=== PATIENT | male | born 1950 | race Caucasian/White ===

== ENCOUNTER 2021-07-09 12:04 | Inpatient (IN) | payer MEDICARE, OTHER ==
[~2021-07-09] VITALS: Ht 185.4 cm; Wt 81.2 kg
--- NOTE | 2021-07-09 12:14 | NUR ---
DR VILLAFANA AT BEDSIDE FOR EVAL.
--- NOTE | 2021-07-09 12:23 | NUR ---
RADIOLOGY AT BEDSIDE FOR R FOOT XRAY
[2021-07-09] MEDS ORDERED: VANCOMYCIN HCL 1.25 GM in IV D5W 260 ML IV ONE (12:30)
--- NOTE | 2021-07-09 12:38 | NUR ---
IV LINE STARTED BLOOD DRAWN AND SENT TO LAB.
[2021-07-09 13:09] LABS: BASOPHILS % (AUTO) 0.3 % (0.0-2.0); EOSINOPHILS % (AUTO) 0.5 % (0.0-6.0); HEMATOCRIT 36 % (39-51); HEMOGLOBIN 12.1 g/dL (13.5-17.5); LYMPHOCYTES # (AUTO) 0.7 K/uL (0.8-4.8); LYMPHOCYTES % (AUTO) 7.6 % (20.0-44.0); MEAN CORPUSCULAR HGB CONC 33 g/dl (31.0-36.0); MEAN CORPUSCULAR VOLUME 98 fL (80-96); MONOCYTES # (AUTO) 0.6 K/uL (0.1-1.30); MONOCYTES % (AUTO) 6.5 % (2.0-12.0); NEUTROPHILS # (AUTO) 7.8 K/uL (1.8-8.9); NEUTROPHILS % (AUTO) 85.1 % (43.0-81.0); PLATELET COUNT (AUTO) 253 K/uL (150-450); RED BLOOD CELL COUNT(AUTO) 3.69 MIL/uL (4.5-6.0); WHITE BLOOD COUNT (AUTO) 9.2 K/uL (4.3-11.0)
[2021-07-09 13:16] LABS: CALCIUM, SERUM 8.6 mg/dL (8.5-10.1); CREATININE 1.5 mg/dL (0.6-1.3)
[2021-07-09] MEDS ORDERED: Z GUARD REMEDY 4 OZ OINT TP PRN (13:30)
[2021-07-09] MEDS ORDERED: MAGNESIUM HYDROXIDE 30 ML UDC PO PRN (13:30)
[2021-07-09] MEDS ORDERED: ALBUTEROL FS 2.5 MG/3 ML VIAL.NEB NEB PRN (13:30)
[2021-07-09] MEDS ORDERED: DEXTROSE 50%-WATER 50 ML DISP.SYRIN IV PRN (13:30)
[2021-07-09] MEDS ORDERED: ONDANSETRON HCL/PF 4 MG/2 ML VIAL IVP PRN (13:30)
[2021-07-09] MEDS ORDERED: MAG HYDROX/AL HYDROX/SIMETH 30 ML UDC PO PRN (13:30)
[2021-07-09] MEDS ORDERED: TRAZODONE 50 MG TABLET PO PRN (13:30)
[2021-07-09] MEDS ORDERED: ACETAMINOPHEN 325 MG TABLET PO PRN (13:30)
[2021-07-09] MEDS ORDERED: ZOLPIDEM TARTRATE 5 MG TABLET PO PRN (13:30)
[2021-07-09 13:33] LABS: C-REACTIVE PROTEIN 6.8 mg/dL (0.0-0.9)
--- NOTE | 2021-07-09 13:58 | NUR ---
LIPID PANEL AND HGBA1C FOR 07/10/21 AM PER MARCOS TOLEDO.
[2021-07-09] MEDS ORDERED: IV NS 0.9% 1,000 ML IV PRN (14:00)
--- NOTE | 2021-07-09 14:01 | NUR ---
RADIOLOGY AT BEDSIDE FOR CHEST XRAY.
[2021-07-09] MEDS ORDERED: PANTOPRAZOLE 40 MG TABLET.DR PO ONE (14:08)
[2021-07-09] MEDS: PANTOPRAZOLE 40 MG TABLET.DR PO SCH (14:11)
[2021-07-09] MEDS ORDERED: RIVA10TA PO (14:59)
[2021-07-09] MEDS ORDERED: FLUT1BLS IH (14:59)
[2021-07-09] MEDS ORDERED: BUME2TAB7 PO (14:59)
[2021-07-09] MEDS ORDERED: INSU100V9 IJ (14:59)
[2021-07-09] MEDS ORDERED: FERR325T23 PO (14:59)
[2021-07-09] MEDS ORDERED: POLY17PO4 PO (14:59)
[2021-07-09] MEDS ORDERED: TRAZ-257 PO (14:59)
[2021-07-09] MEDS ORDERED: CARI350T27 PO (14:59)
[2021-07-09] MEDS ORDERED: ALBU18HF2 IH (14:59)
[2021-07-09] MEDS ORDERED: AMIN887L PO (14:59)
[2021-07-09] MEDS ORDERED: CARV3.12 PO (14:59)
[2021-07-09] MEDS ORDERED: ACET325T53 PO (14:59)
[2021-07-09] MEDS ORDERED: ASCO500C17 PO (14:59)
[2021-07-09] MEDS ORDERED: AMIO200T5 PO (14:59)
[2021-07-09] MEDS ORDERED: DOCU-141 PO (14:59)
[2021-07-09] MEDS ORDERED: REPA0.5T6 PO (14:59)
[2021-07-09] MEDS ORDERED: ATOR10TA PO (14:59)
[2021-07-09] MEDS ORDERED: CLOP75TA15 PO (14:59)
[2021-07-09] MEDS: PIPERACILLIN /TAZOBACTAM 3.375 G in IV D5W 50 ML IV SCH ×2 (15:25→23:30)
--- NOTE | 2021-07-09 15:51 | NUR ---
[facility] AWAITING FOR THE PHARM TO DELIVER ZOSYN SCHEDULED AT [id number]. MULTIPLE CALLS WERE MADE. WILL CONTINUE TO FOLLOW UP UNTIL DELIVERED.
[2021-07-09] MEDS: BLOOD SUGAR DIAGNOSTIC 1 EACH STRIP IN SCH (17:43)
[2021-07-09] MEDS ORDERED: CARVEDILOL 3.125 MG TABLET ONE (17:52)
[2021-07-09] MEDS: CARVEDILOL 3.125 MG TABLET PO SCH (17:56)
[2021-07-09] MEDS: REPAGLINIDE 0.5 MG TABLET PO SCH (17:56)
[2021-07-09] MEDS: RIVAROXABAN 10 MG TABLET PO SCH (18:00)
[2021-07-09] MEDS: INSULIN REGULAR, HUMAN 100 UNIT/ML 3 ML VIAL SQ PRN (18:01)
--- NOTE | 2021-07-09 18:50 | NUR ---
bed assigned,MS [id number] for next shift
--- NOTE | 2021-07-09 20:11 | NUR ---
REPORT GIVEN TO LOBO ALLEN
--- NOTE | 2021-07-09 20:43 | NUR ---
PT TRANSFERRED IN STABLE CONDITION
[2021-07-09 21:00] VITALS: BP 128/77
--- NOTE | 2021-07-09 21:00 | NUR ---
MS RN NOTE PATIENT ARRIVED ON UNIT IN STABLE CONDITION, PATIENT A/O X 2, REORIENTED PATIENT TO PLACE, PT BELIEVED HE [facility]. PATIENT STABLE ON RA, NO S/S OF DISTRESS OR SOB NOTED, BREATHING EVEN AND UNLABORED. PT HAS LEFT ABOVE THE KNEE AMPUTATION. IV ACCESS ON RIGHT AC #20G INTACT AND FLUSHING WELL. PATIENT COMPLAINING OF 8/10 PAIN ON RIGHT FOOT AND BUTTOCKS. NOTED BELONGINGS AND PLACED IN CHART. ID BAND PLACED ON PATIENT. DEMONSTRATED HOW TO USE CALL LIGHT AND REMOTE CONTROL. SAFETY MEASURES IN PLACE: CALL LIGHT WITHIN REACH, SIDE RAILS UP X 3, BED LOCKED IN LOW POSITION, BED ALARM ON. WILL CONTINUE TO MONITOR PATIENT
[2021-07-09] MEDS: HYDROMORPHONE INJ 2 MG/ML DISP.SYRIN IV PRN (21:22)
[2021-07-09] MEDS ORDERED: PIPERACILLIN /TAZOBACTAM 3.375 G VIAL IV ONE (22:49)
[2021-07-09] MEDS: MORPHINE SULFATE INJ 2 MG/ML DISP.SYRIN IV PRN (23:29)
[2021-07-10] MEDS: BLOOD SUGAR DIAGNOSTIC 1 EACH STRIP IN SCH ×5 (00:03→21:07)
[2021-07-10] MEDS: INSULIN REGULAR, HUMAN 100 UNIT/ML 3 ML VIAL SQ PRN ×5 (00:09→21:08)
[2021-07-10] MEDS ORDERED: PIPERACILLIN /TAZOBACTAM 3.375 G VIAL IV ONE (06:30)
[2021-07-10] MEDS: PIPERACILLIN /TAZOBACTAM 3.375 G in IV D5W 50 ML IV SCH ×3 (06:35→20:48)
[2021-07-10 06:36] LABS: BASOPHILS # (AUTO) 0.1 K/uL (0.0-0.2); BASOPHILS % (AUTO) 0.6 % (0.0-2.0); EOSINOPHILS % (AUTO) 0.8 % (0.0-6.0); HEMATOCRIT 34 % (39-51); HEMOGLOBIN 11.6 g/dL (13.5-17.5); LYMPHOCYTES % (AUTO) 10.7 % (20.0-44.0); MEAN CORPUSCULAR HGB CONC 34 g/dl (31.0-36.0); MEAN CORPUSCULAR VOLUME 96 fL (80-96); MONOCYTES # (AUTO) 0.8 K/uL (0.1-1.30); MONOCYTES % (AUTO) 8.4 % (2.0-12.0); NEUTROPHILS # (AUTO) 7.4 K/uL (1.8-8.9); NEUTROPHILS % (AUTO) 79.5 % (43.0-81.0); PLATELET COUNT (AUTO) 256 K/uL (150-450); RED BLOOD CELL COUNT(AUTO) 3.53 MIL/uL (4.5-6.0); WHITE BLOOD COUNT (AUTO) 9.3 K/uL (4.3-11.0)
[2021-07-10 07:06] LABS: CALCIUM, SERUM 8.5 mg/dL (8.5-10.1); CREATININE 1.4 mg/dL (0.6-1.3); MAGNESIUM 2.4 mg/dL (1.8-2.4); PHOSPHORUS 3.7 mg/dL (2.5-4.9); POTASSIUM 4.4 mmol/L (3.5-5.1)
[2021-07-10 07:14] LABS: THYROID STIMULATING HORMONE 1.493 uIU/mL (0.358-3.74)
--- NOTE | 2021-07-10 07:35 | NUR ---
MS RN OPENING NOTES RECEIVED PATIENT ON BED, AWAKE, VERBALLY RESPONSIVE, NO SIGNS OF ACUTE DISTRESS NOTED. ON ROOM AIR, TOLERATING WELL, NO SOB NOTED. IV ACCESS ON RAC #20G INTACT AND PATENT WITH NS @75 ML/HR RUNNING. NO C/O PAIN OR DISCOMFORT AT THIS TIME. SAFETY MEASURES MAINTAINED. BED LOCKED AND IN LOWEST POSITION, SR UP X2, CALL LIGHT PLACED WITHIN EASY REACH. WILL CONTINUE TO MONITOR.
--- NOTE | 2021-07-10 07:43 | NUR ---
WOUND CARE CONSULT: PT PRESENTS WITH DRESSING TO RT LOWER EXTREMITY WHICH IS DRY AND INTACT. PT FOLLOWED BY DR ZHANG FOR LOWER EXTREMITY. LEFT ABOVE KNEE AMPUTATION NOTED. SACRAL SCARRING AND MIDBACK INCISION WITH OPEN AREA NOTED TO BE PRESENT ON ADMISSION. DR KRUGER CALLED FOR SURGICAL CONSULT. RECOMMENDATIONS MADE FOR SKIN PROTECTION. DISCUSSED WITH NURSING STAFF. IN AGREEMENT WITH PLAN OF CARE. Addendum: 07/10/21 at 0745 by FANG KEARNEY WNDNU Amended: Links added.
--- NOTE | 2021-07-10 07:54 | NUR ---
MS RN NOTES PATIENT ALERT/ORIENTED X 2-3, PT VERY FORGETFUL, PT ABLE TO MAKE NEEDS KNOWN. PT STABLE ON RA, NO S/S OF DISTRESS OR SOB NOTED, BREATHING EVEN AND UNLABORED. MEDICATIONS GIVEN ORDERED. PAIN CONTROL PROVIDED FOR RIGHT FOOT AND BUTTOCKS PAIN. PHOTOS OF RIGHT FOOT, SACRUM AND RIGHT KNEE TAKEN AND PLACED IN CHART. SAFETY MEASURES IN PLACE: CALL LIGHT WITHIN REACH, SIDE RAILS UP X 2, BED LOCKED IN LOW POSITION, BED ALARM ON. ENDORSED TO DAY SHIFT NURSE FOR CONTINUITY OF CARE
[2021-07-10 08:00] VITALS: BP 124/72
[2021-07-10] MEDS: PANTOPRAZOLE 40 MG TABLET.DR PO SCH (08:29)
[2021-07-10] MEDS: ASCORBIC ACID 500 MG TABLET PO SCH (08:51)
[2021-07-10] MEDS: AMIODARONE HCL 200 MG TABLET PO SCH (08:51)
[2021-07-10] MEDS: CARVEDILOL 3.125 MG TABLET PO SCH ×2 (08:51→16:39)
[2021-07-10] MEDS: CLOPIDOGREL BISULFATE 75 MG TABLET PO SCH (08:51)
[2021-07-10 08:55] LABS: IRON, SERUM 29 ug/dl (50-175); TOTAL IRON BINDING CAPACITY 184 ug/dl (250-450)
[2021-07-10] MEDS ORDERED: FLUTICASONE/VILANTEROL 1 EACH BLST.W.DEV IH SCH (09:00)
[2021-07-10] MEDS ORDERED: BUMETANIDE (1 MG) 1 MG TABLET PO SCH (09:00)
[2021-07-10] MEDS: REPAGLINIDE 0.5 MG TABLET PO SCH ×3 (09:36→16:39)
[2021-07-10] MEDS: VANCOMYCIN 1.25 GM in IV D5W 250 ML IV SCH (12:04)
[2021-07-10 13:04] LABS: FERRITIN 318 ng/mL (8-388)
[2021-07-10] MEDS: GLUCERNA SHAKE 237 ML CAN PO SCH ×2 (14:14→17:18)
[2021-07-10 16:00] VITALS: BP 127/74
[2021-07-10] MEDS: RIVAROXABAN 10 MG TABLET PO SCH (16:40)
[2021-07-10] MEDS: HYDROMORPHONE INJ 2 MG/ML DISP.SYRIN IV PRN (18:27)
--- NOTE | 2021-07-10 18:57 | NUR ---
MS RN CLOSING NOTES PATIENT ON BED, AWAKE, VERBALLY RESPONSIVE, NO SIGNS OF ACUTE DISTRESS NOTED. REMAINS ON ROOM AIR, TOLERATING WELL, NO SOB NOTED. IV ACCESS ON RAC #20G INTACT, SALINE LOCKED. NO C/O PAIN OR DISCOMFORT AT THIS TIME. ALL DUE MEDS GIVEN, TOLERATED WELL. SAFETY MEASURES MAINTAINED. BED LOCKED AND IN LOWEST POSITION, SR UP X2, CALL LIGHT PLACED WITHIN EASY REACH. WILL ENDORSE TO NEXT SHIFT.
[2021-07-10] MEDS: ALBUTEROL FS 2.5 MG/3 ML VIAL.NEB NEB SCH (19:50)
[2021-07-10] MEDS: BUDESONIDE RESPULE INH 0.5 MG/2 ML AMPUL.NEB NEB SCH (19:50)
[2021-07-10 20:00] VITALS: BP 124/75
[2021-07-10] MEDS: MORPHINE SULFATE INJ 2 MG/ML DISP.SYRIN IV PRN (21:07)
[2021-07-10] MEDS ORDERED: INSULIN GLARGINE, 100 UNIT/ML CARTRIDGE SQ SCH (22:00)
[2021-07-11] MEDS: HYDROMORPHONE INJ 2 MG/ML DISP.SYRIN IV PRN ×2 (00:26→12:55)
[2021-07-11] MEDS: ALBUTEROL FS 2.5 MG/3 ML VIAL.NEB NEB SCH ×4 (01:30→20:54)
[2021-07-11] MEDS: MORPHINE SULFATE INJ 2 MG/ML DISP.SYRIN IV PRN ×2 (03:00→17:56)
[2021-07-11] MEDS: PIPERACILLIN /TAZOBACTAM 3.375 G in IV D5W 50 ML IV SCH ×2 (04:54→15:12)
--- NOTE | 2021-07-11 06:41 | NUR ---
MS RN NOTES AWAKE & RESPONSIVE. NOT IN ANY DISTRESS. NO SOB NOTED. DENIES ANY PAIN OR DISCOMFORT AT THIS TIME. WITH IV-HL PATENT & INTACT. AM CARE DONE. MONITORED ACCORDINGLY. CALL LIGHT WITHIN REACH. BED IN LOWEST POSITION. SR UP X 3 WITH BED ALARM ON FOR SAFETY. WILL ENDORSE TO NEXT SHIFT.
[2021-07-11] MEDS: BLOOD SUGAR DIAGNOSTIC 1 EACH STRIP IN SCH ×4 (06:50→22:00)
[2021-07-11] MEDS: INSULIN REGULAR, HUMAN 100 UNIT/ML 3 ML VIAL SQ PRN ×4 (06:51→22:10)
[2021-07-11 07:17] LABS: BASOPHILS % (AUTO) 0.6 % (0.0-2.0); EOSINOPHILS % (AUTO) 1.4 % (0.0-6.0); HEMATOCRIT 35 % (39-51); HEMOGLOBIN 11.6 g/dL (13.5-17.5); LYMPHOCYTES # (AUTO) 1.2 K/uL (0.8-4.8); LYMPHOCYTES % (AUTO) 16.4 % (20.0-44.0); MEAN CORPUSCULAR HGB CONC 33 g/dl (31.0-36.0); MEAN CORPUSCULAR VOLUME 97 fL (80-96); MONOCYTES # (AUTO) 0.6 K/uL (0.1-1.30); MONOCYTES % (AUTO) 8.4 % (2.0-12.0); NEUTROPHILS # (AUTO) 5.4 K/uL (1.8-8.9); NEUTROPHILS % (AUTO) 73.2 % (43.0-81.0); PLATELET COUNT (AUTO) 261 K/uL (150-450); RED BLOOD CELL COUNT(AUTO) 3.57 MIL/uL (4.5-6.0); WHITE BLOOD COUNT (AUTO) 7.4 K/uL (4.3-11.0)
[2021-07-11] MEDS: BUDESONIDE RESPULE INH 0.5 MG/2 ML AMPUL.NEB NEB SCH ×2 (07:30→20:53)
--- NOTE | 2021-07-11 07:58 | NUR ---
MS RN OPENING NOTES RECEIVED PT IN BED, AWAKE, VERBALLY RESPONSIVE, NO SIGNS OF ACUTE DISTRESS NOTED. ON ROOM AIR, TOLERATING WELL, NO SOB NOTED. IV ACCESS ON R AC #20G INTACT AND PATENT WITH NS @75 ML/HR RUNNING. NO C/O PAIN OR DISCOMFORT AT THIS TIME. SAFETY MEASURES MAINTAINED. BED IS LOCKED AND IN LOWEST POSITION, SR UP X2, CALL LIGHT AND BED SIDE TABLE WITHIN EASY REACH. WILL CONTINUE TO MONITOR THROUGHOUT THE SHIFT.
[2021-07-11 08:00] VITALS: BP 122/79
[2021-07-11 08:08] LABS: CALCIUM, SERUM 8.7 mg/dL (8.5-10.1); CREATININE 1.5 mg/dL (0.6-1.3); POTASSIUM 3.9 mmol/L (3.5-5.1)
[2021-07-11] MEDS: REPAGLINIDE 0.5 MG TABLET PO SCH ×3 (08:42→16:37)
[2021-07-11] MEDS: PANTOPRAZOLE 40 MG TABLET.DR PO SCH (08:42)
[2021-07-11] MEDS: ASCORBIC ACID 500 MG TABLET PO SCH (08:43)
[2021-07-11] MEDS: CLOPIDOGREL BISULFATE 75 MG TABLET PO SCH (08:43)
[2021-07-11] MEDS: GLUCERNA SHAKE 237 ML CAN PO SCH ×2 (08:44→17:23)
[2021-07-11] MEDS: CARVEDILOL 3.125 MG TABLET PO SCH ×2 (08:45→16:37)
[2021-07-11] MEDS: BUMETANIDE (1 MG) 1 MG TABLET PO SCH (08:46)
[2021-07-11] MEDS: AMIODARONE HCL 200 MG TABLET PO SCH (08:46)
[2021-07-11] MEDS: VANCOMYCIN 1.25 GM in IV D5W 250 ML IV SCH (12:46)
[2021-07-11 16:00] VITALS: BP_SYST 124; BP_SYST 127; BP_DIAS 63; BP_DIAS 84
[2021-07-11] MEDS: RIVAROXABAN 10 MG TABLET PO SCH (16:39)
[2021-07-11] MEDS: GABAPENTIN 300 MG CAPSULE PO SCH (18:51)
--- NOTE | 2021-07-11 19:35 | NUR ---
MS RN CLOSING NOTES Pt IS RESTING IN BED, AWAKE, VERBALLY RESPONSIVE, NO SIGNS OF ACUTE DISTRESS NOTED. REMAINS ON ROOM AIR AND IS TOLERATING WELL, NO SOB NOTED AT THIS TIME. IV ACCESS ON R AC #20g IS PATENT AND INTACT, SALINE LOCKED. NO C/O PAIN OR DISCOMFORT AT THIS TIME. SAFETY MEASURES MAINTAINED. BED LOCKED AND IN LOWEST POSITION, SIDERAILS UP X2, CALL LIGHT PLACED WITHIN EASY REACH. WILL ENDORSE TO ONCOMING SHIFT.
[2021-07-11 20:00] VITALS: BP 115/66
[2021-07-11] MEDS ORDERED: INSULIN GLARGINE, 100 UNIT/ML CARTRIDGE SQ SCH (22:00)
[2021-07-11] MEDS: MUPIROCIN OINT 2% 22 GM TUBE NS SCH (22:06)
--- NOTE | 2021-07-11 23:05 | NUR ---
blood sugar checked earlier was 114.
[2021-07-12] VITALS: BP 113/72
[2021-07-12] MEDS: ALBUTEROL FS 2.5 MG/3 ML VIAL.NEB NEB SCH ×4 (01:30→20:19)
[2021-07-12 04:00] VITALS: BP 111/65
[2021-07-12 05:00] LABS: BASOPHILS # (AUTO) 0.1 K/uL (0.0-0.2); BASOPHILS % (AUTO) 0.7 % (0.0-2.0); EOSINOPHILS % (AUTO) 2.6 % (0.0-6.0); HEMATOCRIT 33 % (39-51); HEMOGLOBIN 10.9 g/dL (13.5-17.5); LYMPHOCYTES # (AUTO) 1.4 K/uL (0.8-4.8); LYMPHOCYTES % (AUTO) 18.6 % (20.0-44.0); MEAN CORPUSCULAR HGB CONC 34 g/dl (31.0-36.0); MEAN CORPUSCULAR VOLUME 97 fL (80-96); MONOCYTES # (AUTO) 0.6 K/uL (0.1-1.30); MONOCYTES % (AUTO) 8.6 % (2.0-12.0); NEUTROPHILS % (AUTO) 69.5 % (43.0-81.0); PLATELET COUNT (AUTO) 266 K/uL (150-450); RED BLOOD CELL COUNT(AUTO) 3.38 MIL/uL (4.5-6.0); WHITE BLOOD COUNT (AUTO) 7.2 K/uL (4.3-11.0)
[2021-07-12 05:23] LABS: CALCIUM, SERUM 8.4 mg/dL (8.5-10.1); CREATININE 1.6 mg/dL (0.6-1.3); POTASSIUM 4.5 mmol/L (3.5-5.1)
[2021-07-12] MEDS: BLOOD SUGAR DIAGNOSTIC 1 EACH STRIP IN SCH ×4 (06:35→21:25)
[2021-07-12] MEDS: INSULIN REGULAR, HUMAN 100 UNIT/ML 3 ML VIAL SQ PRN ×4 (06:37→21:20)
[2021-07-12] MEDS: BUDESONIDE RESPULE INH 0.5 MG/2 ML AMPUL.NEB NEB SCH ×2 (07:30→20:18)
--- NOTE | 2021-07-12 07:45 | NUR ---
RN OPENING NOTES PATIENT IS AWAKE IN BED RESTING, A/O X4. NO S/S OF PAIN NOTED AT THIS TIME. ON ROOM AIR, NO DISTRESS OR SHORTNESS OF BREATH NOTED. IV ACCESS R AC #20G, INTACT AND PATENT, FLUSHING WELL. PATIENT HAVE AN EXTERNAL COVERSTITCH MACHINE OPERATOR WITH CURRENT READING OF S.R. WITH OCCASIONAL PVC, HR 74, NO CARDIAC DISTRESS NOTED. FALL AND SAFETY MEASURES IN PLACE, BED ALARM ON, BED IN LOW AND LOCK POSITION, CALL LIGHT AND TABLE WITHIN EASY REACH, SIDE RAIL UP X2. WILL CONTINUE TO MONITOR.
[2021-07-12] MEDS: GLUCERNA SHAKE 237 ML CAN PO SCH ×2 (08:00→17:48)
[2021-07-12 08:45] VITALS: BP 120/64
[2021-07-12] MEDS ORDERED: VALSARTAN 80 MG TABLET PO SCH (09:00)
[2021-07-12] MEDS: AMIODARONE HCL 200 MG TABLET PO SCH (10:16)
[2021-07-12] MEDS: ASCORBIC ACID 500 MG TABLET PO SCH (10:16)
[2021-07-12] MEDS: GABAPENTIN 300 MG CAPSULE PO SCH ×3 (10:17→16:46)
[2021-07-12] MEDS: BUMETANIDE (1 MG) 1 MG TABLET PO SCH (10:17)
[2021-07-12] MEDS: PANTOPRAZOLE 40 MG TABLET.DR PO SCH (10:17)
[2021-07-12] MEDS: CARVEDILOL 3.125 MG TABLET PO SCH ×2 (10:17→16:48)
[2021-07-12] MEDS: MUPIROCIN OINT 2% 22 GM TUBE NS SCH ×2 (10:18→21:26)
[2021-07-12] MEDS: CLOPIDOGREL BISULFATE 75 MG TABLET PO SCH (10:18)
[2021-07-12] MEDS: REPAGLINIDE 0.5 MG TABLET PO SCH ×3 (10:21→16:46)
[2021-07-12] MEDS: VANCOMYCIN 1.25 GM in IV D5W 250 ML IV SCH (12:00)
[2021-07-12 12:07] VITALS: BP 129/73
[2021-07-12] MEDS: MORPHINE SULFATE INJ 2 MG/ML DISP.SYRIN IV PRN ×2 (12:35→18:52)
[2021-07-12 16:21] VITALS: BP_SYST 112; BP_SYST 90; BP_DIAS 52
[2021-07-12] MEDS: RIVAROXABAN 10 MG TABLET PO SCH (16:47)
--- NOTE | 2021-07-12 16:49 | NUR ---
RN NOTE CARVEDILOL WAS NOT GIVEN DUE TO DECREASED BLOOD PRESSURE, BP: 90/52, P: 82
--- NOTE | 2021-07-12 19:25 | NUR ---
MS RN OPENING NOTES: RECEIVED PATIENT IN BED, AWAKE, A/O X4. NO S/S OF DISTRESS NOTED. NO COMPLAIN OF PAIN. CALL LIGHT WITHIN REACH. BED ALARM ON. BED IN LOWEST AND LOCKED POSITION. HAD BM.
--- NOTE | 2021-07-12 19:43 | NUR ---
RN CLOSING NOTES PATIENT IS AWAKE IN BED RESTING, A/O X4. NO S/S OF PAIN NOTED AT THIS TIME. ON ROOM AIR, NO DISTRESS OR SHORTNESS OF BREATH NOTED. IV ACCESS R AC #20G, INTACT AND PATENT, FLUSHING WELL. FALL AND SAFETY MEASURES IN PLACE, BED ALARM ON, BED IN LOW AND LOCK POSITION, CALL LIGHT AND TABLE WITHIN EASY REACH, SIDE RAIL UP X2. WILL ENDORSE TO CHIEF OF ANESTHESIOLOGY.
[2021-07-12 20:00] VITALS: BP 107/60
[2021-07-12] MEDS: INSULIN GLARGINE, 100 UNIT/ML CARTRIDGE SQ SCH (21:25)
[2021-07-13] VITALS: BP 93/54
[2021-07-13] MEDS: ALBUTEROL FS 2.5 MG/3 ML VIAL.NEB NEB SCH ×4 (01:11→20:12)
--- NOTE | 2021-07-13 01:11 | NUR ---
RT NOTE PT REFUSED TX AT THIS TIME. NO RESPIRATORY DISTRESS NOTED. RN NOTIFIED. PT TOLERATING ROOM AIR WELL.
[2021-07-13] MEDS: MORPHINE SULFATE INJ 2 MG/ML DISP.SYRIN IV PRN ×3 (01:38→17:36)
[2021-07-13 04:00] VITALS: BP 116/69
[2021-07-13] MEDS: BLOOD SUGAR DIAGNOSTIC 1 EACH STRIP IN SCH ×4 (06:46→22:42)
[2021-07-13] MEDS: INSULIN REGULAR, HUMAN 100 UNIT/ML 3 ML VIAL SQ PRN ×4 (06:46→22:45)
--- NOTE | 2021-07-13 07:43 | NUR ---
RN OPENING NOTE- PT ASLEEP, EASILY AWAKENED. NO S/S OF PAIN NOTED AT THIS TIME. ON ROOM AIR, NO DISTRESS OR SHORTNESS OF BREATH NOTED. IV ACCESS R AC #20G. TELE MONITOR WITH CURRENT READING OF S.R. WITH OCCASIONAL PVC, HR 78, NO CARDIAC DISTRESS NOTED. FALL AND SAFETY MEASURES IN PLACE, BED ALARM ON, BED IN LOW AND LOCK POSITION, CALL LIGHT AND TABLE WITHIN EASY REACH, SIDE RAIL UP X2. WILL CONTINUE TO MONITOR.
[2021-07-13 07:44] LABS: CREATININE 1.8 mg/dL (0.6-1.3); POTASSIUM 5.2 mmol/L (3.5-5.1)
[2021-07-13] MEDS: BUDESONIDE RESPULE INH 0.5 MG/2 ML AMPUL.NEB NEB SCH ×2 (08:00→20:12)
[2021-07-13] MEDS: GLUCERNA SHAKE 237 ML CAN PO SCH ×2 (08:54→16:44)
[2021-07-13] MEDS: PANTOPRAZOLE 40 MG TABLET.DR PO SCH (08:55)
[2021-07-13] MEDS: AMIODARONE HCL 200 MG TABLET PO SCH (09:00)
[2021-07-13] MEDS: CARVEDILOL 3.125 MG TABLET PO SCH ×2 (09:00→16:41)
[2021-07-13] MEDS: CLOPIDOGREL BISULFATE 75 MG TABLET PO SCH (09:43)
[2021-07-13] MEDS: ASCORBIC ACID 500 MG TABLET PO SCH (09:43)
[2021-07-13] MEDS: GABAPENTIN 300 MG CAPSULE PO SCH ×3 (09:43→16:41)
[2021-07-13] MEDS: BUMETANIDE (1 MG) 1 MG TABLET PO SCH (09:43)
[2021-07-13] MEDS: REPAGLINIDE 0.5 MG TABLET PO SCH ×3 (09:43→16:41)
[2021-07-13] MEDS: MUPIROCIN OINT 2% 22 GM TUBE NS SCH ×2 (10:19→21:32)
--- NOTE | 2021-07-13 11:00 | NUR ---
RN NOTE- PT W LARGE BM AT THIS TIME, BATH GIVEN. TOLERATED WELL. MORPHINE EFFECTIVELY RELIEVING PAIN.
[2021-07-13] MEDS: VANCOMYCIN 1.25 GM in IV D5W 250 ML IV SCH (12:11)
[2021-07-13] MEDS: HYDROMORPHONE INJ 2 MG/ML DISP.SYRIN IV PRN (12:35)
[2021-07-13] MEDS: RIVAROXABAN 10 MG TABLET PO SCH (16:42)
--- NOTE | 2021-07-13 18:07 | NUR ---
ATTEMPTED CALLING RN REGARDING CTA LOWER EXTREMITY, NO ANSWER. LAB VALUES ARE TO LOW TO DO CT ANGIOGRAM (GFR 41, CREATININE 1.8). PLEASE FOLLOW UP WITH ORDERING MD REGARDING CT EXAM. CALL RADIOLOGY EXT [phone] IF ANYTHING CHANGES.
--- NOTE | 2021-07-13 18:43 | NUR ---
RN CLOSING NOTE-PT NO S/S OF PAIN NOTED AT THIS TIME. ON ROOM AIR, NO DISTRESS OR SHORTNESS OF BREATH NOTED. IV ACCESS R AC #20G. TELE MONITOR WITH CURRENT READING OF S.R. HR-80, NO CARDIAC DISTRESS NOTED. FALL AND SAFETY MEASURES IN PLACE, BED ALARM ON, BED IN LOW AND LOCK POSITION, CALL LIGHT AND TABLE WITHIN EASY REACH, SIDE RAIL UP X2. WILL CONTINUE TO MONITOR/ ASSIST
[2021-07-13 20:00] VITALS: BP 96/52
--- NOTE | 2021-07-13 20:00 | NUR ---
RN NOTES RECEIVED PATIENT IN BED, ALERT/ORIENTED X4, ROOM AIR, NO COMPLAIN OF PAIN, RECEIVED MORPHINE AND DILAUDID ALTERNATELY DURING SHIFT. URINAL AT THE BEDSIDE, WILL CONTINUE TO MONITOR
[2021-07-13] MEDS: INSULIN GLARGINE, 100 UNIT/ML CARTRIDGE SQ SCH (22:48)
[2021-07-14] VITALS: BP 97/49
[2021-07-14] MEDS: ALBUTEROL FS 2.5 MG/3 ML VIAL.NEB NEB SCH ×4 (01:30→19:16)
[2021-07-14 04:00] VITALS: BP 102/54
[2021-07-14] MEDS: BLOOD SUGAR DIAGNOSTIC 1 EACH STRIP IN SCH ×4 (06:51→22:01)
[2021-07-14] MEDS: INSULIN REGULAR, HUMAN 100 UNIT/ML 3 ML VIAL SQ PRN ×4 (06:53→22:06)
--- NOTE | 2021-07-14 07:28 | NUR ---
Alert and oriented x4, room air, right foot pain due to diabetic open wound, xarelto for VTE, pain managed by Dilaudid and Morphine with adequate relief, potassium level 07/13/21 5.2, reported to Dr. Lagunas, repeated lab STAT, latest potassium 5.1 NNO. Monitor electrolytes, renal function, stable for angiogram from nephrology stand point, accucheck, sliding scale.
--- NOTE | 2021-07-14 07:33 | NUR ---
RN OPENING NOTE- PT ASLEEP, EASILY AWAKENED. NO S/S OF PAIN NOTED AT THIS TIME. ON ROOM AIR, NO DISTRESS OR SHORTNESS OF BREATH NOTED. IV ACCESS R AC #20G. TELE MONITOR WITH CURRENT READING OF S.R. WITH OCCASIONAL PVC, HR 80, NO CARDIAC DISTRESS NOTED. FALL AND SAFETY MEASURES IN PLACE, BED ALARM ON, BED IN LOW AND LOCK POSITION, CALL LIGHT AND TABLE WITHIN EASY REACH, SIDE RAIL UP X2. WILL CONTINUE TO MONITOR.
[2021-07-14 07:49] LABS: CALCIUM, SERUM 9.1 mg/dL (8.5-10.1); CREATININE 1.7 mg/dL (0.6-1.3); POTASSIUM 4.7 mmol/L (3.5-5.1)
[2021-07-14] MEDS: PANTOPRAZOLE 40 MG TABLET.DR PO SCH (08:02)
[2021-07-14] MEDS: GLUCERNA SHAKE 237 ML CAN PO SCH ×2 (08:02→16:34)
[2021-07-14 08:20] VITALS: BP 108/59
[2021-07-14] MEDS: BUDESONIDE RESPULE INH 0.5 MG/2 ML AMPUL.NEB NEB SCH ×2 (08:43→19:16)
[2021-07-14] MEDS: MUPIROCIN OINT 2% 22 GM TUBE NS SCH ×2 (08:58→21:37)
[2021-07-14] MEDS: AMIODARONE HCL 200 MG TABLET PO SCH (08:59)
[2021-07-14] MEDS: REPAGLINIDE 0.5 MG TABLET PO SCH ×3 (08:59→16:34)
[2021-07-14] MEDS: CARVEDILOL 3.125 MG TABLET PO SCH ×2 (08:59→16:38)
[2021-07-14] MEDS: BUMETANIDE (1 MG) 1 MG TABLET PO SCH (08:59)
[2021-07-14] MEDS: GABAPENTIN 300 MG CAPSULE PO SCH ×3 (08:59→16:34)
[2021-07-14] MEDS: ASCORBIC ACID 500 MG TABLET PO SCH (08:59)
[2021-07-14] MEDS: CLOPIDOGREL BISULFATE 75 MG TABLET PO SCH (08:59)
[2021-07-14] MEDS: MORPHINE SULFATE INJ 2 MG/ML DISP.SYRIN IV PRN ×2 (11:16→17:16)
--- NOTE | 2021-07-14 11:41 | NUR ---
RN NOTE- DRESSING CHANGE LT FOOT. ERYTHEMA, DRY SEROUS DRAINAGE, NO PURULENCE, NO ODOR. CLEANSED W NS, PETROLEUM DRESSING AND 4X4 APPLIED. WRAPPED W KERLIX. PHOTOS TAKEN FOR CHART. TOLERATED WELL.
[2021-07-14 12:12] VITALS: BP 110/61
[2021-07-14] MEDS: VANCOMYCIN 1.25 GM in IV D5W 250 ML IV SCH (12:32)
--- NOTE | 2021-07-14 14:30 | NUR ---
RN NOTE- MIDLINE PLACED OSCAR. TOLERATED WELL.
--- NOTE | 2021-07-14 15:12 | NUR ---
RN NOTE- MOVED PT TO RM 324-2 ROOMMATE PENDING CDIFF CX RESULTS
[2021-07-14] MEDS: RIVAROXABAN 10 MG TABLET PO SCH (16:34)
[2021-07-14 16:35] VITALS: BP 118/63
--- NOTE | 2021-07-14 18:00 | NUR ---
RN NOTE- DR BIRMINGHAM HAD PHONED AROUND 1600 STATING HE WANTED CTA TO RLE DONE TODAY. RADIOLOGY STATED GFR WAS OFF AND IT COULDN'T BE COMPLETED BECAUSE OF PTS LAB VALUES,. DR BIRMINGHAM STATED PT WAS CLEAR BY NEPHRO AND GO HEAD AND COMPLETE PROCEDURE. RADIOLOGY NOTIFIED AND COMPLIED. PT TAKEN TO RADIOLOGY FOR CTA
[2021-07-14] MEDS ORDERED: IOHEXOL-350 100 ML VIAL IV ONE (18:02)
[2021-07-14] MEDS ORDERED: IV NS 0.9% 250 ML IV ONE (18:02)
--- NOTE | 2021-07-14 18:46 | NUR ---
RN CLOSING NOTE- PT BACK FROM RADIOLOGY FOR CTA. VS STABLE, NEEDS ATTENDED. NEW MIDLINE TO OSCAR PATENT . PT IN NO DISTRESS. NO PAIN STATED. SIDE RAILS UP, CALL LIGHT IN REACH, BED LOCKED, MONITOR AND ASSIST.
--- NOTE | 2021-07-14 19:50 | NUR ---
CHILDREN LIBRARIAN OPENING NOTES RECEIVED PATIENT LAYING AWAKE IN BED. A/OX4. PATIENT WITH REGULAR AND UNLABORED BREATHING ON ROOM AIR TOLERATED WELL. NO SIGNS AND SYMPTOMS OF DISTRESS NOTED AT THIS TIME. NO COMPLAINS OF PAIN OR DISCOMFORT AT THIS TIME. IV ACCESS OSCAR MIDLINE SL. IV ACCESS PATENT AND INTACT. SAFETY PRECAUTIONS ENFORCED WITH BED LOCKED AND AT LOWEST POSITION. SIDERAILS UP X2. CALL LIGHT WITHIN REACH AT ALL TIMES. WILL CONTINUE TO MONITOR PATIENT.
[2021-07-14 20:00] VITALS: BP 109/61
[2021-07-14] MEDS: INSULIN GLARGINE, 100 UNIT/ML CARTRIDGE SQ SCH (22:07)
[2021-07-15] VITALS: BP 123/62
[2021-07-15] MEDS: ALBUTEROL FS 2.5 MG/3 ML VIAL.NEB NEB SCH ×4 (00:57→19:30)
[2021-07-15] MEDS: BUDESONIDE RESPULE INH 0.5 MG/2 ML AMPUL.NEB NEB SCH ×2 (07:30→19:30)
--- NOTE | 2021-07-15 07:30 | NUR ---
PASSENGER CAR CONDUCTOR OPENING NOTES PATIENT LAYING AWAKE IN BED. A/OX4. PATIENT WITH REGULAR AND UNLABORED BREATHING ON ROOM AIR TOLERATED WELL. NO SIGNS AND SYMPTOMS OF DISTRESS NOTED AT THIS TIME. NO COMPLAINS OF PAIN OR DISCOMFORT AT THIS TIME. IV ACCESS OSCAR MIDLINE SL. IV ACCESS PATENT AND INTACT. SAFETY PRECAUTIONS ENFORCED WITH BED LOCKED AND AT LOWEST POSITION. SIDERAILS UP X2. CALL LIGHT WITHIN REACH AT ALL TIMES. WILL CONTINUE TO MONITOR PATIENT.
[2021-07-15 07:45] LABS: CALCIUM, SERUM 8.6 mg/dL (8.5-10.1); CREATININE 1.7 mg/dL (0.6-1.3); POTASSIUM 4.3 mmol/L (3.5-5.1)
[2021-07-15] MEDS: PANTOPRAZOLE 40 MG TABLET.DR PO SCH (07:59)
[2021-07-15 08:00] VITALS: BP 126/44
[2021-07-15] MEDS: BLOOD SUGAR DIAGNOSTIC 1 EACH STRIP IN SCH ×4 (08:02→22:41)
[2021-07-15] MEDS: INSULIN REGULAR, HUMAN 100 UNIT/ML 3 ML VIAL SQ PRN ×3 (08:04→22:44)
--- NOTE | 2021-07-15 08:10 | NUR ---
FIELD INSURANCE SALES MANAGER CLOSING NOTES PATIENT STILL LAYING AWAKE IN BED. A/OX4. PATIENT WITH REGULAR AND UNLABORED BREATHING ON ROOM AIR TOLERATED WELL. NO SIGNS AND SYMPTOMS OF DISTRESS NOTED AT THIS TIME. NO COMPLAINS OF PAIN OR DISCOMFORT AT THIS TIME. IV ACCESS OSCAR MIDLINE SL. IV ACCESS PATENT AND INTACT. SAFETY PRECAUTIONS ENFORCED WITH BED LOCKED AND AT LOWEST POSITION. SIDERAILS UP X2. CALL LIGHT WITHIN REACH AT ALL TIMES. WILL ENDORSE CONTINUITY OF CARE TO DAY SHIFT NURSE.
[2021-07-15] MEDS: MUPIROCIN OINT 2% 22 GM TUBE NS SCH ×2 (09:19→22:36)
[2021-07-15] MEDS: BUMETANIDE (1 MG) 1 MG TABLET PO SCH (09:20)
[2021-07-15] MEDS: ASCORBIC ACID 500 MG TABLET PO SCH (09:20)
[2021-07-15] MEDS: GABAPENTIN 300 MG CAPSULE PO SCH ×3 (09:20→18:19)
[2021-07-15] MEDS: AMIODARONE HCL 200 MG TABLET PO SCH (09:21)
[2021-07-15] MEDS: REPAGLINIDE 0.5 MG TABLET PO SCH ×3 (09:22→18:22)
[2021-07-15] MEDS: CARVEDILOL 3.125 MG TABLET PO SCH ×2 (09:22→18:22)
[2021-07-15] MEDS: CLOPIDOGREL BISULFATE 75 MG TABLET PO SCH (09:24)
[2021-07-15] MEDS ORDERED: IV NS 0.9% 1,000 ML ONE (09:36)
[2021-07-15] MEDS ORDERED: LIDOCAINE HCL/MPF 1% 30 ML VIAL IJ ONE (09:37)
[2021-07-15] MEDS ORDERED: IODIXANOL 150 ML IV ONE (09:37)
[2021-07-15] MEDS: GLUCERNA SHAKE 237 ML CAN PO SCH ×2 (09:38→18:26)
[2021-07-15 12:00] VITALS: BP 112/61
[2021-07-15] MEDS ORDERED: FENTANYL PF 100MCG/2ML AMPUL ONE (12:51)
[2021-07-15] MEDS ORDERED: MIDAZOLAM HCL 2 MG/2ML VIAL ONE (12:51)
[2021-07-15] MEDS ORDERED: HEPARIN SODIUM, PORCINE 1,000 UNIT/ML VIAL ONE ×2 (12:51→15:01)
[2021-07-15] MEDS ORDERED: HEPARIN SODIUM, PORCINE 5000 UNITS/1 ML VIAL ONE (12:51)
[2021-07-15] MEDS ORDERED: NORMAL SALINE 10 ML DISP.SYRIN IV SCH (13:00)
[2021-07-15] MEDS ORDERED: IODIXANOL 320MG/ML 50 ML IV ONE (15:01)
[2021-07-15] MEDS ORDERED: NITROGLYCERIN IN 5 % DEXTROSE 250 ML IV ONE (15:15)
[2021-07-15] MEDS ORDERED: ASPIRIN 81 MG TAB.CHEW ONE (15:27)
[2021-07-15 16:00] VITALS: BP 128/71
[2021-07-15] MEDS: VANCOMYCIN 1.25 GM in IV D5W 250 ML IV SCH (16:34)
[2021-07-15] MEDS: RIVAROXABAN 10 MG TABLET PO SCH (18:21)
--- NOTE | 2021-07-15 19:00 | NUR ---
CLAIM APPROVER CLOSING NOTES PATIENT LAYING AWAKE IN BED. A/OX4. PATIENT WITH REGULAR AND UNLABORED BREATHING ON ROOM AIR TOLERATED WELL. NO SIGNS AND SYMPTOMS OF DISTRESS NOTED AT THIS TIME. NO COMPLAINS OF PAIN OR DISCOMFORT AT THIS TIME. IV ACCESS OSCAR MIDLINE SL. IV ACCESS PATENT AND INTACT. ALL DUE MEDS GIVEN ORDERED. PATIENT HAD PRIPHERAL ANGIOGRAPHY FROM LEFT LOWER ABDOMEN. NO S/S OF BLEEDING NOTED.SAFETY PRECAUTIONS ENFORCED WITH BED LOCKED AND AT LOWEST POSITION. SIDERAILS UP X2. CALL LIGHT WITHIN REACH AT ALL TIMES. WILL ENDORSE INCOMING SHIFT FOR ROBB.
--- NOTE | 2021-07-15 19:56 | NUR ---
RN OPENING NOTES RECEIVED PT IN BED, ASLEEP, AWAKENS TO VERBAL STIMULI. AOx4, ABLE TO MAKE NEEDS KNOWN. ON RA AND TOLERATING WELL. NO SOB NOTED. NO S/SX OF RESPIRATORY DISTRESS NOTED. TELE MONITOR DETECTS SR WITH PVCS. IV ACCESS IN OSCAR MIDLINE. IV IS INTACT, PATENT, AND FLUSHING WELL. SAFETY PRECAUTIONS IN PLACE: BED IN LOWEST, LOCKED POSITION, BRAKES ON, AND SIDERAILS UPx2. TABLE AND CALL LIGHT WITHIN REACH. WILL CONTINUE TO MONITOR.
[2021-07-15] MEDS: INSULIN GLARGINE, 100 UNIT/ML CARTRIDGE SQ SCH (22:43)
[2021-07-16] MEDS: ALBUTEROL FS 2.5 MG/3 ML VIAL.NEB NEB SCH ×4 (01:30→21:23)
[2021-07-16] MEDS: HYDROMORPHONE INJ 2 MG/ML DISP.SYRIN IV PRN ×3 (03:48→22:28)
--- NOTE | 2021-07-16 03:48 | NUR ---
ADMINISTERED DILAUDID PER MD ORDER FOR PAIN. VS WNL. WILL CONTINUE TO MONITOR.
[2021-07-16] MEDS: BLOOD SUGAR DIAGNOSTIC 1 EACH STRIP IN SCH ×4 (07:32→22:19)
--- NOTE | 2021-07-16 07:38 | NUR ---
RN CLOSING NOTES PT IN BED, ASLEEP, AWAKENS TO VERBAL STIMULI. AOx3-4, ABLE TO MAKE NEEDS KNOWN. ON RA AND TOLERATING WELL. NO SOB NOTED. NO S/SX OF RESPIRATORY DISTRESS NOTED. TELE MONITOR DETECTS SR WITH PVCS. IV ACCESS IN OSCAR MIDLINE. IV IS INTACT, PATENT, AND FLUSHING WELL. ALL NEEDS MET. PT KEPT CLEAN AND DRY. SAFETY PRECAUTIONS IN PLACE: BED IN LOWEST, LOCKED POSITION, BRAKES ON, AND SIDERAILS UPx2. TABLE AND CALL LIGHT WITHIN REACH. WILL ENDORSE TO ONCOMING SHIFT FOR ROBB.
[2021-07-16 08:00] VITALS: BP 120/62
[2021-07-16 08:12] LABS: CALCIUM, SERUM 8.3 mg/dL (8.5-10.1); CREATININE 1.5 mg/dL (0.6-1.3); POTASSIUM 4.6 mmol/L (3.5-5.1)
[2021-07-16] MEDS: CLOPIDOGREL BISULFATE 75 MG TABLET PO SCH (08:35)
[2021-07-16] MEDS: REPAGLINIDE 0.5 MG TABLET PO SCH ×3 (08:36→18:09)
[2021-07-16] MEDS: ASCORBIC ACID 500 MG TABLET PO SCH (08:36)
[2021-07-16] MEDS: AMIODARONE HCL 200 MG TABLET PO SCH (08:36)
[2021-07-16] MEDS: PANTOPRAZOLE 40 MG TABLET.DR PO SCH (08:37)
[2021-07-16] MEDS: BUMETANIDE (1 MG) 1 MG TABLET PO SCH (08:37)
[2021-07-16] MEDS: GABAPENTIN 300 MG CAPSULE PO SCH ×3 (08:37→18:09)
[2021-07-16] MEDS: CARVEDILOL 3.125 MG TABLET PO SCH ×2 (08:38→18:16)
[2021-07-16] MEDS: GLUCERNA SHAKE 237 ML CAN PO SCH ×2 (08:54→18:09)
[2021-07-16] MEDS: BUDESONIDE RESPULE INH 0.5 MG/2 ML AMPUL.NEB NEB SCH (11:48)
[2021-07-16 12:00] VITALS: BP 100/58
[2021-07-16] MEDS: VANCOMYCIN 1.25 GM in IV D5W 250 ML IV SCH (13:02)
[2021-07-16 16:00] VITALS: BP 105/67
[2021-07-16] MEDS: MUPIROCIN OINT 2% 22 GM TUBE NS SCH ×2 (16:37→22:19)
[2021-07-16] MEDS: IV NS 0.9% 1,000 ML IV PRN (16:55)
[2021-07-16] MEDS: RIVAROXABAN 10 MG TABLET PO SCH (18:10)
--- NOTE | 2021-07-16 18:30 | NUR ---
TRAINING AND DEVELOPMENT HEAD NOTES PATIENT LAYING AWAKE IN BED. A/OX4. PATIENT WITH REGULAR AND UNLABORED BREATHING ON ROOM AIR TOLERATED WELL. NO SIGNS AND SYMPTOMS OF DISTRESS NOTED AT THIS TIME. NO COMPLAINS OF PAIN OR DISCOMFORT AT THIS TIME. IV ACCESS OSCAR MIDLINE SL. IV ACCESS PATENT AND INTACT. ALL DUE MEDS GIVEN ORDERED.SAFETY PRECAUTIONS ENFORCED WITH BED LOCKED AND AT LOWEST POSITION. SIDERAILS UP X2. CALL LIGHT WITHIN REACH AT ALL TIMES. WILL ENDORSE INCOMING SHIFT FOR ROBB.
[2021-07-16] MEDS: INSULIN REGULAR, HUMAN 100 UNIT/ML 3 ML VIAL SQ PRN ×2 (18:45→22:24)
--- NOTE | 2021-07-16 19:20 | NUR ---
TELE/RN OPENING NOTE PT AWAKE, A/OX3 ABLE TO MAKE NEEDS KNOWN. RESPIRATIONS EVEN/UNLABORED. DENIES ANY PAIN AT THIS TIME. IV SITE: OSCAR MIDLINE INTACT/PATENT, RUNNING NS @75ML/HR. PT IN NO ACUTE DISTRESS. SAFETY MEASURES IN PLACE. WILL CONT TO MONITOR.
[2021-07-16 20:00] VITALS: BP 103/55
--- NOTE | 2021-07-16 21:26 | NUR ---
RT Budesonide administered but unable to scan.
[2021-07-16] MEDS: INSULIN GLARGINE, 100 UNIT/ML CARTRIDGE SQ SCH (22:22)
[2021-07-17] VITALS: BP 98/49
[2021-07-17] MEDS: ALBUTEROL FS 2.5 MG/3 ML VIAL.NEB NEB SCH ×3 (01:09→13:30)
[2021-07-17 04:00] VITALS: BP 94/52
[2021-07-17] MEDS: HYDROMORPHONE INJ 2 MG/ML DISP.SYRIN IV PRN ×2 (05:04→12:31)
[2021-07-17] MEDS: IV NS 0.9% 1,000 ML IV PRN (06:32)
[2021-07-17] MEDS: BLOOD SUGAR DIAGNOSTIC 1 EACH STRIP IN SCH ×2 (06:36→11:18)
[2021-07-17] MEDS: INSULIN REGULAR, HUMAN 100 UNIT/ML 3 ML VIAL SQ PRN ×2 (06:40→11:19)
--- NOTE | 2021-07-17 07:14 | NUR ---
TELE/RN CLOSING NOTE PT RESTING IN BED, EASILY AROUSABLE, DENIES ANY PAIN AT THIS TIME. NO SOB. IV SITE: OSCAR MIDLINE INTACT/PATENT, CONT ON NS @75ML/HR. NO ACUTE EVENTS DURING THE SHIFT. ALL NEEDS ATTENDED TO. SAFETY MEASURES MAINTAINED.
--- NOTE | 2021-07-17 07:20 | NUR ---
TAVERN OPERATOR OPENING NOTES RECEIVED PATIENT IN BED AWAKE, NO SIGNS OF ACUTE DISTRESS NOTED. ON ROOM AIR TOLERATING WELL, NO SOB NOTED. WITH IV ACCESS ON OSCAR MIDLINE INTACT, NS @75 ML/HR RUNNING. ON TELE MONITOR WITH CURRENT READING OF SR @69. SAFETY MEASURES MAINTAINED. BED LOCKED AND IN LOWEST POSITION, SR UP, CALL LIGHT PLACED WITHIN EASY REACH. WILL CONTINUE TO MONITOR.
[2021-07-17] MEDS: BUDESONIDE RESPULE INH 0.5 MG/2 ML AMPUL.NEB NEB SCH ×2 (07:30→08:23)
[2021-07-17 07:31] LABS: BASOPHILS % (AUTO) 0.6 % (0.0-2.0); EOSINOPHILS % (AUTO) 2.2 % (0.0-6.0); HEMATOCRIT 29 % (39-51); HEMOGLOBIN 9.8 g/dL (13.5-17.5); LYMPHOCYTES % (AUTO) 20.1 % (20.0-44.0); MEAN CORPUSCULAR HGB CONC 34 g/dl (31.0-36.0); MEAN CORPUSCULAR VOLUME 98 fL (80-96); MONOCYTES % (AUTO) 8.6 % (2.0-12.0); NEUTROPHILS % (AUTO) 68.5 % (43.0-81.0); PLATELET COUNT (AUTO) 188 K/uL (150-450); RED BLOOD CELL COUNT(AUTO) 2.99 MIL/uL (4.5-6.0); WHITE BLOOD COUNT (AUTO) 6.9 K/uL (4.3-11.0)
[2021-07-17 07:32] LABS: LYMPHOCYTES # (AUTO) 1.4 K/uL (0.8-4.8); MONOCYTES # (AUTO) 0.6 K/uL (0.1-1.30); NEUTROPHILS # (AUTO) 4.7 K/uL (1.8-8.9)
[2021-07-17 07:54] LABS: CALCIUM, SERUM 8.2 mg/dL (8.5-10.1); CREATININE 1.4 mg/dL (0.6-1.3); MAGNESIUM 2.4 mg/dL (1.8-2.4); PHOSPHORUS 3.2 mg/dL (2.5-4.9); POTASSIUM 4.5 mmol/L (3.5-5.1)
[2021-07-17] MEDS: PANTOPRAZOLE 40 MG TABLET.DR PO SCH ×2 (08:11→09:24)
[2021-07-17 08:51] VITALS: BP 114/67
[2021-07-17] MEDS: BUMETANIDE (1 MG) 1 MG TABLET PO SCH (09:22)
[2021-07-17] MEDS: GLUCERNA SHAKE 237 ML CAN PO SCH (09:22)
[2021-07-17] MEDS: GABAPENTIN 300 MG CAPSULE PO SCH ×2 (09:22→12:19)
[2021-07-17] MEDS: REPAGLINIDE 0.5 MG TABLET PO SCH ×2 (09:23→12:19)
[2021-07-17] MEDS: CARVEDILOL 3.125 MG TABLET PO SCH (09:23)
[2021-07-17] MEDS: AMIODARONE HCL 200 MG TABLET PO SCH (09:23)
[2021-07-17] MEDS: CLOPIDOGREL BISULFATE 75 MG TABLET PO SCH (09:24)
[2021-07-17] MEDS: ASCORBIC ACID 500 MG TABLET PO SCH (09:24)
[2021-07-17] MEDS: MUPIROCIN OINT 2% 22 GM TUBE NS SCH (09:26)
[2021-07-17] MEDS: VANCOMYCIN 1.25 GM in IV D5W 250 ML IV SCH (12:19)
[2021-07-17] MEDS ORDERED: NUT.237L45 PO (12:51)
[2021-07-17] MEDS ORDERED: GABA300C PO (12:51)
[2021-07-17] MEDS ORDERED: PANT40TA49 PO (12:51)
[2021-07-17] MEDS ORDERED: BUME1TAB8 PO (12:51)
[2021-07-17] MEDS ORDERED: MUPI22OI7 NS (12:51)
[2021-07-17] MEDS ORDERED: REPA0.5T6 PO (12:51)
[2021-07-17] MEDS ORDERED: Insulin Glargine,Hum SQ (12:51)
[2021-07-17 12:59] VITALS: BP 120/62
[2021-07-17] MEDS: MORPHINE SULFATE INJ 2 MG/ML DISP.SYRIN IV PRN (15:59)
[2021-07-17 16:13] VITALS: BP 122/80
--- NOTE | 2021-07-17 16:25 | NUR ---
NUMERICAL CONTROL TOOL PROGRAMMER NOTES PATIENT DISCHARGE TO [facility] IN STABLE CONDITION. A/O X3-4, VERBALLY RESPONSIVE. VITAL SIGNS TAKEN, STABLE AND RECORDED. ALL BELONGINGS ACCOUNTED FOR, FORM SIGNED BY PATIENT. IV ACCESS ON FLAQUITO REMOVED, PRESSURE DRESSING APPLIED TO SITE. HEALTH TEACHINGS AND DISCHARGE INSTRUCTIONS PROVIDED TO PATIENT WITH VERBALIZATION OF UNDERSTANDING. PHOTOS OF SKIN ISSUES TAKEN PLACED IN CHART. TREATMENT DONE BEFORE DISCHARGE. REPORT GIVEN TO [facility] C/O AIDAN. PATIENT PICKED-UP @1620 BY [facility]IA [facility]. CN AWARE OF DISCHARGE.
[2021-07-18] MEDS ORDERED: VANCOMYCIN 1 GM in IV D5W 250 ML IV SCH (21:00)
== END 2021-07-17 16:30 | DRG 622 ==
LOC: ER 12:12 → TRANSITION 13:56 → TELE2 18:50 → MED 19:14 → TELE 07-11 20:24 → MED 07-12 14:13 → TELE 07-12 21:13
PROVIDERS: ADMIT Nurse Practitioner Acute Care; ATTEND Registered Nurse
PROC: 0JBQ0ZZ Excision of Right Foot Subcutaneous Tissue and Fascia, Open Approach (ICD-10-PCS; principal; 2021-07-10)
PROC: 05HC33Z Insertion of Infusion Device into Left Basilic Vein, Percutaneous Approach (ICD-10-PCS; 2021-07-14)
PROC: 047M3ZZ Dilation of Right Popliteal Artery, Percutaneous Approach (ICD-10-PCS; 2021-07-15)
PROC: B41G1ZZ Fluoroscopy of Left Lower Extremity Arteries using Low Osmolar Contrast (ICD-10-PCS; 2021-07-15)
DX: E11.621 Type 2 diabetes mellitus with foot ulcer (principal); E43 Unspecified severe protein-calorie malnutrition; L03.115 Cellulitis of right lower limb; D68.59 Other primary thrombophilia; F11.20 Opioid dependence, uncomplicated; R64 Cachexia; E87.1 Hypo-osmolality and hyponatremia; J90 Pleural effusion, not elsewhere classified; I50.42 Chronic combined systolic (congestive) and diastolic (congestive) heart failure; N17.0 Acute kidney failure with tubular necrosis; E11.51 Type 2 diabetes mellitus with diabetic peripheral angiopathy without gangrene; Z20.822 Contact with and (suspected) exposure to COVID-19; E11.628 Type 2 diabetes mellitus with other skin complications; I25.10 Atherosclerotic heart disease of native coronary artery without angina pectoris; I11.0 Hypertensive heart disease with heart failure; Z88.8 Allergy status to other drugs, medicaments and biological substances; E11.40 Type 2 diabetes mellitus with diabetic neuropathy, unspecified; E11.622 Type 2 diabetes mellitus with other skin ulcer; E78.5 Hyperlipidemia, unspecified; E11.65 Type 2 diabetes mellitus with hyperglycemia; Z89.612 Acquired absence of left leg above knee; Z95.0 Presence of cardiac pacemaker; L97.529 Non-pressure chronic ulcer of other part of left foot with unspecified severity; L97.519 Non-pressure chronic ulcer of other part of right foot with unspecified severity; J44.9 Chronic obstructive pulmonary disease, unspecified; F32.9 Major depressive disorder, single episode, unspecified; F41.9 Anxiety disorder, unspecified; Z74.09 Other reduced mobility; G89.4 Chronic pain syndrome; B95.62 Methicillin resistant Staphylococcus aureus infection as the cause of diseases classified elsewhere; Z79.899 Other long term (current) drug therapy; Z87.891 Personal history of nicotine dependence; D53.9 Nutritional anemia, unspecified; M85.80 Other specified disorders of bone density and structure, unspecified site; L98.9 Disorder of the skin and subcutaneous tissue, unspecified; S31.829A Unspecified open wound of left buttock, initial encounter; S31.819A Unspecified open wound of right buttock, initial encounter; X58.XXXA Exposure to other specified factors, initial encounter; Y92.9 Unspecified place or not applicable
CPT/HCPCS: 36246; 36415; 71045-TC; 73630-TC; 75625; 75635-TC; 75710-TC; 80048-TC; 80061-TC; 80202-TC; 82728-TC; 82962-TC; 83540-TC; 83735-TC; 84100-TC; 84132-TC; 84443-TC; 84484-TC; 85025-TC; 85652-TC; 85730-TC; 86140-TC; 87070-TC; 87081-TC; 93307-TC; 94799-TC; A6403; C1725; C1769; C1887; C1894; G0378; G0500; J1170; J1644; J1815; J2250; J2270; J2543; J3010; J3370; J3490; J7030; J7050; J7060; Q9967